=== PATIENT | female | born 1940 | race Caucasian/White ===

== ENCOUNTER 2020-03-27 13:23 | Inpatient (IN) | payer MEDICARE, OTHER ==
[2020-03-27 14:16] LABS: #Basophils 0.1 thou/uL (0.0-0.2); #Eosinphils 0.3 thou/uL (0.0-0.7); #Lymphocytes 1.3 thou/uL (1.20-3.40); #Monocytes 0.8 thou/uL (0.11-0.59); #Neutrophils 6.8 thou/uL (1.40-6.50); %Basophils 0.5 % (0.0-1.0); %Eosinophils 3.1 % (0.0-10.0); %Lymphocytes 14.2 % (21.0-51.0); %Monocytes 8.8 % (0.0-10.0); %Neutrophils 73.4 % (42.0-75.0); Hemoglobin 13.9 g/dL (12.0-16.0); Mean Corpuscular HGB CONC 32.7 g/dL (32.0-36.0); Mean Corpuscular Hemoglobin 28.3 pg (27.0-31.0); Mean Corpuscular Volume 86.5 fL (78.0-98.0); Mean Platelet Volume 9.8 fL (7.4-10.4); Platelet Count 224 thou/uL (130-400); RBC Distribution Width 13.7 % (11.5-14.5); Red Blood Cell (RBC) Count 4.91 mill/uL (4.20-5.40); White Blood Cell (WBC) Count 9.3 thou/uL (4.8-10.8)
--- NOTE | 2020-03-27 14:38 | RAD ---
Exam: Single view of the pelvis HISTORY: Pelvic and hip pain after fall COMPARISON: None FINDINGS: A single view the pelvis shows no evidence of acute fracture or dislocation. No degenerativ e changes seen in either hip. IMPRESSION: No evidence of acute osseous abnormality.
--- NOTE | 2020-03-27 14:43 | CT ---
Exam: CT cervical spine without contrast HISTORY: Generalized weakness, dizziness and intermittent nystagmus. Fall. Pain. COMPARISON: None FINDINGS: No craniocervical dissociation. Appropriate alignment of the lateral masses of C1 and C2. Intact odon toid process Appropriate alignment of the facets. Soft tissue neck structures: No mass, lymphadenopathy or hematoma. No prevertebral soft tissue swelli ng. Upper mediastinum and lung apices: Emphysematous change in the visualized lung apices. Central spinal canal: There are varying degrees of significant central canal stenosis and significant neural foraminal narrowing due to degenerative change. There is also multilevel ligament flavum thickening. There is at least moderate central canal stenosis at C3-C4, C4-C5, C5-C6. Vertebral bodies: Cervical spine vertebral body height is maintained. No fracture. Incidentals: There is a nondisplaced left first rib fracture. IMPRESSION: 1. Multilevel degenerative changes of cervical spine 2. No evidence of a cervical spine fracture 3. Nondisplaced left first rib fracture.
[2020-03-27 14:50] LABS: ALT (SGPT) 14 U/L (8-55); AST (SGOT) 25 U/L (5-34); Albumin 4.1 g/dL (3.4-4.8); Alkaline Phosphatase 122 U/L (40-110); Anion Gap 17 mmol/L (10-20); BUN (Urea Nitrogen) 18 mg/dL (9.8-20.1); Bilirubin, Total 0.3 mg/dL (0.2-1.2); Calc. Creatinine Clearance 0 mL/min (70-130); Calcium 6.9 mg/dL (7.8-10.44); Carbon Dioxide 28 mmol/L (23-31); Chloride 100 mmol/L (98-107); Estimated GFR-MDRD 65; Globulin 2.4 g/dL (2.4-3.5); Glucose 81 mg/dL (83-110); Potassium 4.8 mmol/L (3.5-5.1); Protein, Total 6.5 g/dL (6.0-8.3); Sodium 140 mmol/L (136-145)
--- NOTE | 2020-03-27 14:51 | CT ---
CT HEAD WITHOUT CONTRAST: 03/27/20 INDICATIONS: Dizziness. No comparison. FINDINGS: There is mild cortical volume loss. There is evidence of old cortical infarct in the right frontal lo be with encephalomalacia. Chronic ischemic changes in the right basal ganglia consistent with old lac unar infarct. Mild periventricular chronic ischemic changes. Ventricles are mildly prominent. No hemorrhage, mass, or evidence of acute cortical infarct. The paranasal sinuses and mastoids are cl ear. IMPRESSION: 1. Chronic ischemic changes. Evidence of old right frontal lobe infarct and right basal ganglia infarct with chronic ischemic changes in the periventricular white matter. 2. Borderline ventriculomegaly. POS: [facility]
[2020-03-27 15:45] LABS: Bilirubin Negative (Negative); Blood, Urine Negative (Negative); Clarity Clear (Clear); Glucose, Urine (Dipstick) Normal (Negative); Ketone, Urine Negative (Negative); Leukocyte Negative Leu/uL (Negative); Nitrite Negative (Negative); Protein, Urine (Dipstick) Negative (Neg-Trace); Specific Gravity, Urine 1.006 (1.002-1.036); Urobilinogen Normal mg/dL (Less than 2)
--- NOTE | 2020-03-27 15:49 | RAD ---
CHEST 1 VIEW PORTABLE: Date: 03/27/2020 HISTORY: Shortness of breath. Injury from a fall at [employer] yesterday. Weakness. FINDINGS: Bilateral shoulder replacement changes. Left ICD. Borderline cardiomegaly. Evidence for valvular repl acement. IMPRESSION: 1. Minimal cardiomegaly with evidence for valvular replacement. 2. Left ICD. 3. Bilateral shoulder replacement. 4. No confluent pneumonia, overt edema, pleural effusion, or other acute process. POS: [facility]
[2020-03-27] MEDS ORDERED: Acetaminophen 500 MG TAB ONE (15:51)
[2020-03-27 18:01] LABS: Troponin I Less than 0.010 ng/mL (< 0.028)
[2020-03-27 18:15] VITALS: BMI 25.0
[2020-03-27] MEDS ORDERED: Acetaminophen 325 MG TAB PO PRN (18:30)
[2020-03-27] MEDS ORDERED: Ondansetron ODT 4 MG TAB SL PRN (18:30)
[2020-03-27] MEDS ORDERED: Ondansetron PF 4 MG/2 ML Vial IVP PRN (18:30)
[2020-03-27] MEDS ORDERED: Aspirin 81 mg Enteric Coated Tablet PO SCH (19:30)
--- NOTE | 2020-03-27 19:34 | PDOC.HHP ---
Hospitalist HPI - History of Present Illness Dizziness History of Present Illness: PCP: Dr. Gao The patient is a 80-year-old female with a past medical history significant for CVA (), CHF, atrial fibrillation (on Xarelto), HTN and hypothyroidism that presents to the emergency department for the above complaint. The patient reports feeling generally weak and having dizzy spells over the past couple of days. She reports that she fell the day prior to admission to the hospital at the local [facility]. She reports that she became dizzy, losing her balance and fell to the ground. She denies LOC or hitting her head. She reports that she can feel these episodes coming on. Her neurologist, Dr. 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 She denies any changes in speech or focal weakness to her extremities the fall was witnessed by her friend. She denies any recent fever or illness. She has had no recent procedures. She denies any recent changes to her medications. She has no psychiatric history. She reports associated bilateral hip pain. She denies any chest pain, heart palpitations or swelling to her lower extremities. She denies any shortness of breath, cough or wheezing. No history of DVT/PE. She denies any abdominal pain, nausea, vomiting, diarrhea or hematochezia/melena. She denies any dysuria or hematuria. She has no other complaints at this time. ED Course: Presented T 98.1, BP 126/71, HR 66, RR 18, 96 RA Medication ministration: 1 g Tylenol Hospitalist ROS - Review of Systems All other systems reviewed; all pertinent +/- noted in HPI/Subj - Medication Medications: 1. Amlodipine 5 mg p.o. daily 2. Levothyroxine 150 mcg p.o. daily 3. Xarelto 20 mg p.o. nightly Allergies: Chantix Hospitalist History - Past Medical History Source: patient, RN notes reviewed Cardiac: reports: AFIB (Permanent, on Xarelto), CHF, HTN [employer]: reports: CVA (2014) Endocrine: reports: Hypothyroidism - Past Surgical History Past Surgical History: reports: Other (MVR, AICD, shoulder surgery) - Family History Family History: reports: cardiac disorder (Mother). denies: cerebrovascular accident - Social History Smoking Status: Current every day smoker Tobacco Type: cigarettes (Half pack per day) Alcohol: reports: None Drugs: reports: none Living Situation: Friends Occupation: Tired Activity level: uses cane/walker (Does not like to use her roller walker) - Exam General Appearance: NAD, awake alert. negative: ill appearing Eye: PERRL, anicteric sclera ENT: normocephalic atraumatic, dry oral mucosa Neck: supple, symmetric Heart: RRR, no murmur, no gallops, no rubs, normal peripheral pulses Respiratory: CTAB, no wheezes, no rales, no ronchi, normal chest expansion Gastrointestinal: soft, non-tender, non-distended, normal bowel sounds, no bruit , no guarding, no rigidity Extremities: no cyanosis, no edema Skin: no rashes Neurological: cranial nerve grossly intact, no weakness, no focal deficits. negative: speech deficit Neurological - other findings: Modified hints unremarkable, NIH 0 Musculoskeletal: normal tone, normal strength Psychiatric: normal affect, A&O x 3 Hospitalist Results - Labs Result Diagrams: 03/27/20 14:00 03/27/20 14:00 Lab results: WBC 9.3 thou/uL (4.8-10.8) 03/27/20 14:00 Hgb 13.9 g/dL (12.0-16.0) 03/27/20 14:00 Hct 42.5 % (36.0-47.0) 03/27/20 14:00 MCV 86.5 fL (78.0-98.0) 03/27/20 14:00 Plt Count 224 thou/uL (130-400) 03/27/20 14:00 Neutrophils % 73.4 % (42.0-75.0) 03/27/20 14:00 Sodium 140 mmol/L (136-145) 03/27/20 14:00 Potassium 4.8 mmol/L (3.5-5.1) 03/27/20 14:00 Chloride 100 mmol/L (98-107) 03/27/20 14:00 Carbon Dioxide 28 mmol/L (23-31) 03/27/20 14:00 BUN 18 mg/dL (9.8-20.1) 03/27/20 14:00 Creatinine 0.85 mg/dL (0.6-1.1) 03/27/20 14:00 Glucose 81 mg/dL (83-110) L 03/27/20 14:00 Calcium 6.9 mg/dL (7.8-10.44) L 03/27/20 14:00 Total Bilirubin 0.3 mg/dL (0.2-1.2) 03/27/20 14:00 AST 25 U/L (5-34) 03/27/20 14:00 ALT 14 U/L (8-55) 03/27/20 14:00 Alkaline Phosphatase 122 U/L (40-110) H 03/27/20 14:00 Troponin I Less than 0.010 ng/mL (< 0.028) 03/27/20 17:09 B-Natriuretic Peptide 163.6 pg/mL (0-100) H 03/27/20 14:00 Serum Total Protein 6.5 g/dL (6.0-8.3) 03/27/20 14:00 Albumin 4.1 g/dL (3.4-4.8) 03/27/20 14:00 Urine Ketones Negative mg/dL (Negative) 03/27/20 15:10 Urine Blood Negative (Negative) 03/27/20 15:10 Urine Nitrite Negative (Negative) 03/27/20 15:10 Ur Leukocyte Esterase Negative Lawrence/uL (Negative) 03/27/20 15:10 - EKG Interpretation EKG: Paced rhythm, no ST elevations - Radiology Interpretation Chest x-ray Status: report reviewed by me Additional Comment: Cardiomegaly, AICD in place, valve replacement, no acute cardiopulmonary process Other Status: report reviewed by me Additional Comment: X-ray pelvis: No acute fracture CT scan - head Status: report reviewed by me Additional Comment: Impression: 1. Chronic ischemic changes. Evidence of old right frontal lobe infarct and right basal ganglia infarct with chronic ischemic changes in the periventricular white matter. 2. Borderline ventriculomegaly. Hospitalist H&P A/P - Problem (1) Dizziness Code(s): R42 - DIZZINESS AND GIDDINESS Status: Acute (2) Hypocalcemia Code(s): E83.51 - HYPOCALCEMIA Status: Acute (3) Closed traumatic nondisplaced fracture of one rib of left side Code(s): S22.32XA - FRACTURE OF ONE RIB, LEFT SIDE, INIT FOR CLOS FX Status: Acute (4) Atrial fibrillation Code(s): I48.91 - UNSPECIFIED ATRIAL FIBRILLATION Status: Chronic (5) CVA (cerebral vascular accident) Code(s): I63.9 - CEREBRAL INFARCTION, UNSPECIFIED Status: Chronic (6) Hypothyroidism Code(s): E03.9 - HYPOTHYROIDISM, UNSPECIFIED Status: Chronic (7) CHF (congestive heart failure) Code(s): I50.9 - HEART FAILURE, UNSPECIFIED Status: Chronic - Plan Plan: 80/F with PMH CVA, A. fib, CHF presents for dizziness. Admit to stroke unit, observation status. Expected length of stay less than 2 midnights. Presented stable vital signs. EKG paced rhythm CT brain 1.chronic ischemic changes 2. Old right frontal lobe infarct and right basal ganglia infarct. 3. Borderline ventriculomegaly. CXR cardiomegaly, no acute process XR pelvis negative for fracture Troponins negative, BNP 163 Calcium 6.9 UA negative #Dizziness Rule out posterior CVA. AICD noncompatible for MRI. Order CD US, echocardiogram. Consult neurology and stroke team. Give aspirin and statin. Check TSH, FLP, mag folate/B12 and trend troponins Check orthostatic vital signs #Hypocalcemia EKG paced rhythm Presented Ca 6.9, albumin WNL Check mag, Phos, vitamin D, PTH Start calcium and D supplementation. #Closed traumatic nondisplaced fracture of 1 rib on left side Asymptomatic. Denies S OB or pain. Status post fall. #Atrial fibrillation Rate controlled, paced rhythm. Continue home dose Xarelto. 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 Followed by Daniel Fajardo [facility] #Hypothyroidism Check TSH Restart home dose of levothyroxine. #CHF Chronic, stable No signs of fluid volume overload. Order echocardiogram Reports taking Lasix as needed, not on home medication list. SCDs for DVT prophylaxis. Pepcid for GI prophylaxis. Full code. Discussed the case with Dr. Milian.
[2020-03-27] MEDS ORDERED: Rivaroxaban 10 MG TAB PO SCH (19:45)
[2020-03-27 20:26] LABS: Phosphorus 4.7 mg/dL (2.3-4.7)
[2020-03-27 20:31] LABS: Troponin I Less than 0.010 ng/mL (< 0.028)
--- NOTE | 2020-03-27 21:50 | ULT ---
ULTRASOUND DOPPLER DUPLEX CAROTID: DATE: 03/27/2020 HISTORY: Dizziness and vision changes in 80-year-old female TECHNIQUE: Grayscale, color-flow, and spectral analysis, of major arteries of neck. FINDINGS: RIGHT: Atherosclerotic plaque:Mild Peak systolic and end diastolic velocities: CCA:65 cm/s, 15 cm/s ICA:50 cm/s, 15 cm/s ICA/CCA ratio:0.8 Vertebral artery flow:Antegrade LEFT: Atherosclerotic plaque:Mild Peak systolic and end diastolic velocities: CCA:75 cm/s, 15 cm/s ICA:80 cm/s, 15 cm/s ICA/CCA ratio:1.0 Vertebral artery flow:Antegrade IMPRESSION: 1) mild atherosclerosis at origins of bilateral internal carotid arteries. 2) no evidence of hemodynamically significant stenosis.
[2020-03-27] MEDS: Atorvastatin Calcium 40 MG TAB PO SCH (22:02)
[2020-03-27] MEDS: Famotidine 20 MG TAB PO SCH (22:02)
[2020-03-27] MEDS: Calcium Citrate 950 MG TAB PO SCH (22:02)
[2020-03-27] MEDS: Nicotine 14 MG PATCH TD SCH (22:03)
[2020-03-27 22:46] LABS: Vitamin D, 25 Hydroxy 44.3 ng/ml (> 30.0)
[2020-03-28] MEDS ORDERED: Albuterol 200 PUFF (6.7GM INHALER) INH PRN (00:13)
[2020-03-28 04:28] LABS: SARS-CoV-2 MS2 Positive; SARS-CoV-2 N Gene Negative; SARS-CoV-2 S Gene Negative; SARS-CoV-2 by NAA Not Detected (NotDetected); SARS-CoV-2 orf1ab Negative
[2020-03-28 05:34] LABS: #Eosinphils 0.3 thou/uL (0.0-0.7); #Lymphocytes 1.4 thou/uL (1.20-3.40); #Monocytes 0.8 thou/uL (0.11-0.59); #Neutrophils 4.7 thou/uL (1.40-6.50); %Basophils 0.2 % (0.0-1.0); %Eosinophils 4.2 % (0.0-10.0); %Lymphocytes 18.9 % (21.0-51.0); %Monocytes 11.4 % (0.0-10.0); %Neutrophils 65.3 % (42.0-75.0); Hemoglobin 13.2 g/dL (12.0-16.0); Mean Corpuscular HGB CONC 32.4 g/dL (32.0-36.0); Mean Corpuscular Hemoglobin 28.2 pg (27.0-31.0); Mean Corpuscular Volume 87.1 fL (78.0-98.0); Mean Platelet Volume 9.9 fL (7.4-10.4); Platelet Count 206 thou/uL (130-400); RBC Distribution Width 13.7 % (11.5-14.5); Red Blood Cell (RBC) Count 4.68 mill/uL (4.20-5.40); White Blood Cell (WBC) Count 7.1 thou/uL (4.8-10.8)
[2020-03-28 05:57] LABS: Anion Gap 14 mmol/L (10-20); BUN (Urea Nitrogen) 16 mg/dL (9.8-20.1); Calc. Creatinine Clearance 57 mL/min (70-130); Calcium 7.1 mg/dL (7.8-10.44); Carbon Dioxide 31 mmol/L (23-31); Cardiac Risk 3.1 (Less than 4.5); Chloride 101 mmol/L (98-107); Cholesterol 154 mg/dl (< 200 Desired); Estimated GFR-MDRD 57; Glucose 89 mg/dL (83-110); HDL Cholesterol 50 mg/dL (>60 Neg Risk); LDL Cholesterol, Calculated 87 mg/dL; Potassium 4.4 mmol/L (3.5-5.1); Sodium 142 mmol/L (136-145); Triglycerides 85 mg/dL (Less than 150)
[2020-03-28] MEDS: Levothyroxine 150 MCG TAB PO SCH (06:39)
[2020-03-28] MEDS: Famotidine 20 MG TAB PO SCH ×2 (09:10→20:13)
[2020-03-28] MEDS: Calcium Citrate 950 MG TAB PO SCH ×2 (09:10→20:13)
[2020-03-28] MEDS: Amlodipine 5 MG TAB PO SCH (09:11)
[2020-03-28] MEDS: Calcitriol 0.25 MCG CAP PO SCH (09:11)
--- NOTE | 2020-03-28 12:14 | CON ---
NEUROLOGY CONSULTATION DATE OF CONSULTATION: 03/28/2020 REASON FOR CONSULTATION: Dizziness, rule out posterior circulation CVA. HISTORY OF PRESENT ILLNESS: Ms. Mata is a 80-year-old female with medical history significant for CVA in 2014 and then in 2019, congestive heart failure; atrial fibrillation, on Xarelto; hypertension; hypothyroidism, presented to the emergency room with complaint of persistent dizziness and generalized weakness for the last few days. Per the patient, she has a strange feeling before these spells occur about losing balance and usually she falls to the ground. She has double vision. She has tunnel vision and had generalized weakness before the spells of dizziness. The patient denies focal numbness, focal paresthesias, nausea, vomiting, headache, chest pain, abdominal pain, palpitations, swelling, diarrhea, recent illness, or recent exposure to COVID. The patient's neurologist is Dr. Daniel Tavarez from [facility], who told her that she has nystagmus and double vision from a brainstem stroke in June 2019. In the emergency room, vitals were checked and she was admitted for further evaluation to rule out posterior circulation stroke. REVIEW OF SYSTEMS: All systems reviewed and were negative except the pertinent positives and negatives mentioned in the HPI. MEDICATIONS: 1. Amlodipine 5 mg p.o. daily. 2. Levothyroxine 150 mcg p.o. daily. 3. Xarelto 20 mg p.o. nightly. ALLERGIES: CHANTIX. PAST MEDICAL HISTORY: Significant for atrial fibrillation, on Xarelto; congestive heart failure; hypertension; CVA in 2014 and 2019; hypothyroidism. PAST SURGICAL HISTORY: MVR, AICD, shoulder surgery. FAMILY HISTORY: Significant for coronary artery disease. SOCIAL HISTORY: The patient uses cane and walker. She lives with her friends. Denies smoking. She does smoke half a pack per day. Denies alcohol or illegal drug use. PHYSICAL EXAMINATION: VITAL SIGNS: Blood pressure 126/71, heart rate 66, and temperature 98.1. General Appearance: NAD, awake alert. negative: ill appearing Eye: PERRL, anicteric sclera ENT: normocephalic atraumatic, dry oral mucosa Neck: supple, symmetric Heart: RRR, no murmur, no gallops, no rubs, normal peripheral pulses Respiratory: CTAB, no wheezes, no rales, no ronchi, normal chest expansion Gastrointestinal: soft, non-tender, non-distended, normal bowel sounds, no bruit, no guarding, no rigidity Extremities: no cyanosis, no edema Skin: no rashes Neurological: Mental status, the patient is alert and oriented to person, place, and time. Speech is clear. Cranial nerves 2 through 12 intact. Motor, muscle tone and bulk are normal. Strength 5/5 bilaterally. Sensory intact. Cerebellar, finger-nose testing intact. Gait deferred due to the patient's safety reason. DATA REVIEWED: I reviewed the labs, which were essentially unremarkable except for hypoglycemia 81. matter. WBC 9.3 thou/uL (4.8-10.8) 03/27/20 14:00 Hgb 13.9 g/dL (12.0-16.0) 03/27/20 14:00 Hct 42.5 % (36.0-47.0) 03/27/20 14:00 MCV 86.5 fL (78.0-98.0) 03/27/20 14:00 Plt Count 224 thou/uL (130-400) 03/27/20 14:00 Neutrophils % 73.4 % (42.0-75.0) 03/27/20 14:00 Sodium 140 mmol/L (136-145) 03/27/20 14:00 Potassium 4.8 mmol/L (3.5-5.1) 03/27/20 14:00 Chloride 100 mmol/L (98-107) 03/27/20 14:00 Carbon Dioxide 28 mmol/L (23-31) 03/27/20 14:00 BUN 18 mg/dL (9.8-20.1) 03/27/20 14:00 Creatinine 0.85 mg/dL (0.6-1.1) 03/27/20 14:00 Glucose 81 mg/dL (83-110) L 03/27/20 14:00 Calcium 6.9 mg/dL (7.8-10.44) L 03/27/20 14:00 Total Bilirubin 0.3 mg/dL (0.2-1.2) 03/27/20 14:00 AST 25 U/L (5-34) 03/27/20 14:00 ALT 14 U/L (8-55) 03/27/20 14:00 Alkaline Phosphatase 122 U/L (40-110) H 03/27/20 14:00 Troponin I Less than 0.010 ng/mL (< 0.028) 03/27/20 17:09 B-Natriuretic Peptide 163.6 pg/mL (0-100) H 03/27/20 14:00 Serum Total Protein 6.5 g/dL (6.0-8.3) 03/27/20 14:00 Albumin 4.1 g/dL (3.4-4.8) 03/27/20 14:00 Urine Ketones Negative mg/dL (Negative) 03/27/20 15:10 Urine Blood Negative (Negative) 03/27/20 15:10 Urine Nitrite Negative (Negative) 03/27/20 15:10 Ur Leukocyte Esterase Negative Lawrence/uL (Negative) 03/27/20 15:10 - EKG Interpretation EKG: Paced rhythm, no ST elevations - Radiology Interpretation Chest x-ray Status: report reviewed by me Additional Comment: Cardiomegaly, AICD in place, valve replacement, no acute cardiopulmonary process Other Status: report reviewed by me Additional Comment: X-ray pelvis: No acute fracture CT scan - head Status: report reviewed by me Additional Comment: Impression: 1. Chronic ischemic changes. Evidence of old right frontal lobe infarct and right basal ganglia infarct with chronic ischemic changes in the periventricular white matter. 2. Borderline ventriculomegaly. ASSESSMENT AND PLAN: (1) Dizziness Code(s): R42 - DIZZINESS AND GIDDINESS Status: Acute (2) Hypocalcemia Code(s): E83.51 - HYPOCALCEMIA Status: Acute (3) Closed traumatic nondisplaced fracture of one rib of left side Code(s): S22.32XA - FRACTURE OF ONE RIB, LEFT SIDE, INIT FOR CLOS FX Status: Acute (4) Atrial fibrillation Code(s): I48.91 - UNSPECIFIED ATRIAL FIBRILLATION Status: Chronic (5) CVA (cerebral vascular accident) Code(s): I63.9 - CEREBRAL INFARCTION, UNSPECIFIED Status: Chronic (6) Hypothyroidism Code(s): E03.9 - HYPOTHYROIDISM, UNSPECIFIED Status: Chronic (7) CHF (congestive heart failure) Code(s): I50.9 - HEART FAILURE, UNSPECIFIED Status: Chronic Ms. Christen Mata is a 80-year-old female who was consulted for persistent dizziness to rule out posterior circulation stroke. MRI of the brain is not possible due to automatic implantable cardioverter-defibrillator not compatible with MRI. Consider further stroke workup including carotid Dopplers to rule out hemodynamically significant stenosis and echocardiogram to evaluate for left ventricular ejection fraction. Continue telemetry. The patient has atrial fibrillation and is on Xarelto for atrial fibrillation. Continue aspirin and high-intensity statin for secondary stroke prevention. Check TSH, fasting lipid panel, and hemoglobin A1c. Check orthostatic vital signs. Continue home medications. Continue PT/OT/Speech. Continue medical management per primary team. EEG to evaluate the spells to rule out cortical irritability in the posterior temporal lobe. Neuro checks every 4 hours. Deep venous thrombosis prophylaxis and gastrointestinal prophylaxis. We will continue to follow. Thank you for the consult. Job ID: [id number] [email or web address]
--- NOTE | 2020-03-28 14:25 | PDOC.HOSPP ---
- Subjective Encounter Date: 03/28/20 Encounter Time: 14:05 Subjective: f/u for dizziness/fall with negative work up to date. Initial CT brain unremarkable for acute process. Awaiting Echo/repeat CT brain. - Objective Vital Signs & Weight: Vital Signs (12 hours) Temp Pulse Pulse Pulse Resp BP BP 03/28/20 12:04 97.9 F 69 21 H 03/28/20 09:11 67 136/72 03/28/20 09:04 67 62 136/72 03/28/20 07:00 97.3 F L 67 18 03/28/20 06:56 71 16 03/28/20 04:00 97.5 F L 67 16 BP BP BP Pulse Ox 03/28/20 12:04 177/86 H 96 03/28/20 09:11 03/28/20 09:04 139/63 03/28/20 07:00 134/61 96 03/28/20 06:56 97 03/28/20 04:00 140/78 94 L Weight Weight 164 lb 5 oz Result Diagrams: 03/28/20 05:00 03/28/20 05:00 Additional Labs: Laboratory Tests 03/27/20 03/27/20 03/27/20 14:00 17:48 19:55 Phosphorus 4.7 Magnesium 2.0 B-Natriuretic Peptide 163.6 H Triglycerides Cholesterol LDL Cholesterol, Calc HDL Cholesterol Vitamin B12 25-OH Vitamin D Total Folate TSH 3rd Generation PTH Intact SARS-CoV-2 (PCR) Not Detected 03/27/20 03/27/20 03/27/20 19:55 19:55 19:55 Phosphorus Magnesium B-Natriuretic Peptide Triglycerides Cholesterol LDL Cholesterol, Calc HDL Cholesterol Vitamin B12 25-OH Vitamin D Total 44.3 Folate 15.60 TSH 3rd Generation 1.0169 PTH Intact 17.9 L SARS-CoV-2 (PCR) 03/27/20 03/28/20 19:55 05:00 Phosphorus Magnesium B-Natriuretic Peptide Triglycerides 85 Cholesterol 154 LDL Cholesterol, Calc 87 HDL Cholesterol 50 Vitamin B12 616 25-OH Vitamin D Total Folate TSH 3rd Generation PTH Intact SARS-CoV-2 (PCR) Radiology Reviewed by me: Yes (Carotid sono - no significant stenosis; CT brain - no acute process) EKG Reviewed by me: Yes (Tele - AV paced) Hospitalist ROS - Medication Medications: Active Medications Generic Name Dose Route Start Last Admin Trade Name Freq PRN Reason Stop Dose Admin Albuterol/Ipratropium 3 ml 03/28/20 01:00 03/28/20 13:29 Ipratropium/Albuterol Sulfate 3 Ml Neb NEB 3 ml [id number] CHOLÉ Administration Amlodipine Besylate 5 mg 03/28/20 09:00 03/28/20 09:11 Amlodipine 5 Mg Tab PO 5 mg DAILY CHLOÉ Administration Atorvastatin Calcium 40 mg 03/27/20 21:00 03/27/20 22:02 Atorvastatin Calcium 40 Mg Tab PO 40 mg HS CHLOÉ Administration Calcitriol 0.25 mcg 03/28/20 09:00 03/28/20 09:11 Calcitriol 0.25 Mcg Cap PO 0.25 mcg DAILY CHLOÉ Administration Calcium Citrate 950 mg 03/27/20 21:00 03/28/20 09:10 Calcium Citrate 950 Mg Tab PO 950 mg BID CHLOÉ Administration Famotidine 20 mg 03/27/20 21:00 03/28/20 09:10 Famotidine 20 Mg Tab PO 20 mg BID CHLOÉ Administration Levothyroxine Sodium 150 mcg 03/28/20 06:00 03/28/20 06:39 Levothyroxine 150 Mcg Tab PO 150 mcg 0600 CHLOÉ Administration Nicotine 14 mg 03/27/20 21:00 03/27/20 22:03 Nicotine 14 Mg Patch TD 14 mg Q24HR CHLOÉ Administration Sodium Chloride 10 ml 03/27/20 19:25 03/28/20 09:12 Flush - Normal Saline 10 Ml Syringe IVF 10 ml PRN PRN Administration Saline Flush - Exam General Appearance: NAD, awake alert Eye: PERRL, anicteric sclera ENT: normocephalic atraumatic, no oropharyngeal lesions Neck: supple, symmetric, no JVD, no thyromegaly, no lymphadenopathy Heart: RRR, no gallops, no rubs, normal peripheral pulses Heart - other findings: S1, S2 Respiratory: CTAB, no wheezes, no rales, no ronchi, normal chest expansion, no tachypnea Gastrointestinal: soft, non-tender, non-distended, normal bowel sounds, no palpable masses Extremities: no cyanosis, no clubbing, no edema Skin: normal turgor, no lesions Neurological: cranial nerve grossly intact, no new deficit Neurological - other findings: + nystagmus bilat(chronic) Musculoskeletal: normal tone, normal strength Psychiatric: normal affect, A&O x 3 Hosp A/P (1) Dizziness Code(s): R42 - DIZZINESS AND GIDDINESS Status: Acute Plan: Likely due to nystagmus, supportive mgmt, PT for functional assessment (2) Hypocalcemia Code(s): E83.51 - HYPOCALCEMIA Status: Acute Plan: Mild, continue Ca++ supplementation (3) Closed traumatic nondisplaced fracture of one rib of left side Code(s): S22.32XA - FRACTURE OF ONE RIB, LEFT SIDE, INIT FOR CLOS FX Status: Chronic Plan: Observe (4) Atrial fibrillation Code(s): I48.91 - UNSPECIFIED ATRIAL FIBRILLATION Status: Chronic Plan: AV pacing, continue Xarelto (5) Hypothyroidism Code(s): E03.9 - HYPOTHYROIDISM, UNSPECIFIED Status: Chronic Plan: Resume home Levothyroxine 150mcg daily - Plan PT/OT, social service agency director, out of bed/ambulate, DVT proph w/SCDs Stable currently 2D echo pending EEG pending PT for functional assessment Repeat CT brain in am AM lab: BMP Likely home in 24h
--- NOTE | 2020-03-28 15:33 | PDOC.EEG ---
Neurology EEG Report - Report Report: This EEG was performed using 24 channel [employer] video digital EEG machine with 24 disc electrodes. This was an extended 2-hour 10 minutes of inpatient video EEG recording. Digital analysis of the EEG was done for Jose Antonio and seizure detection which revealed no abnormalities Background: The posterior background rhythm is 9-10 hz. Minimal reactivity seen with eye opening and closure. Hyperventilation: Not performed. Photic stimulation. Bioccipital symmetric response seen with photic stimulation. Sleep: Drowsiness is observed. EEG diagnosis: Normal awake and drowsy EEG.
[2020-03-28] MEDS ORDERED: Calcium Carbonate 600 MG + Vit D TAB PO SCH (17:00)
[2020-03-28] MEDS: Rivaroxaban 10 MG TAB PO SCH (17:12)
[2020-03-28] MEDS: Acetaminophen 325 MG TAB PO PRN (17:21)
[2020-03-28] MEDS: Nicotine 14 MG PATCH TD SCH (20:13)
[2020-03-28] MEDS: Atorvastatin Calcium 40 MG TAB PO SCH (20:13)
[2020-03-29] MEDS: Acetaminophen 325 MG TAB PO PRN ×2 (01:35→21:54)
[2020-03-29] MEDS: Levothyroxine 150 MCG TAB PO SCH (05:36)
[2020-03-29 06:15] LABS: Anion Gap 19 mmol/L (10-20); BUN (Urea Nitrogen) 17 mg/dL (9.8-20.1); Calc. Creatinine Clearance 55 mL/min (70-130); Calcium 7.6 mg/dL (7.8-10.44); Carbon Dioxide 28 mmol/L (23-31); Chloride 101 mmol/L (98-107); Estimated GFR-MDRD 55; Glucose 101 mg/dL (83-110); Potassium 4.7 mmol/L (3.5-5.1); Sodium 143 mmol/L (136-145)
--- NOTE | 2020-03-29 08:58 | CT ---
EXAM: Brain CTWithout contrast: HISTORY: Follow-up stroke COMPARISON: 03/27/2020 FINDINGS: Stable atrophy and chronic white matter ischemic changes, old right frontal encephalomalacic and righ t periventricular lacunar infarct changes. No focal mass or midline shift. No intra or extra-axial hemorrhage. Sinuses and mastoids are clear of acute process. IMPRESSION: No significant new process. No mass or bleed.
[2020-03-29] MEDS: Calcitriol 0.25 MCG CAP PO SCH (09:50)
[2020-03-29] MEDS: Amlodipine 5 MG TAB PO SCH (09:50)
[2020-03-29] MEDS: Calcium Citrate 950 MG TAB PO SCH ×2 (09:50→20:19)
[2020-03-29] MEDS: Famotidine 20 MG TAB PO SCH ×2 (09:50→20:19)
[2020-03-29] MEDS ORDERED: Albuterol Sulfate 2.5 mg/3 ml Neb NEB PRN (10:15)
[2020-03-29] MEDS ORDERED: Polyethylene Glycol 3350 17 GM Packet PO SCH (11:00)
[2020-03-29] MEDS ORDERED: Senokot S 8.6-50 MG TAB PO SCH (11:00)
--- NOTE | 2020-03-29 14:06 | PDOC.HOSPP ---
- Subjective Encounter Date: 03/29/20 Encounter Time: 09:30 Subjective: Patient seen and examined for acute CVA. Feels generally weak and fatigue. Had palpitations earlier today after breathing treatment. Telemetry monitoring showed short run of SVT. Denies any new focal deficit. No chest pain or syncope reported. - Objective Vital Signs & Weight: Vital Signs (12 hours) Temp Pulse Pulse Pulse Resp BP BP 03/29/20 11:58 96.4 F L 67 17 03/29/20 10:56 67 68 123/64 130/62 03/29/20 07:51 66 12 03/29/20 07:36 98 F 65 17 03/29/20 03:47 97.5 F L 65 16 BP Pulse Ox 03/29/20 11:58 132/64 96 03/29/20 10:56 03/29/20 07:51 03/29/20 07:36 158/70 H 96 03/29/20 03:47 140/71 95 Weight Weight 164 lb 5 oz I&O: 03/28/20 03/29/20 03/30/20 06:59 06:59 06:59 Intake Total 1850 Balance 1850 Result Diagrams: 03/28/20 05:00 03/29/20 05:46 Additional Labs: Radiology Reviewed by me: Yes (CT brainno new CVA) EKG Reviewed by me: Yes (Paced rhythm on telemetry) Hospitalist ROS - Review of Systems Cardiovascular: reports: palpitations. denies: chest pain, orthopnea, paroxysmal noc. dyspnea, edema, light headedness, other Gastrointestinal: reports: constipation. denies: nausea, vomiting, abdominal pain, diarrhea, melena, hematochezia, other - Medication Medications: Active Medications Generic Name Dose Route Start Last Admin Trade Name Freq PRN Reason Stop Dose Admin Acetaminophen 650 mg 03/28/20 15:47 03/29/20 01:35 Acetaminophen 325 Mg Tab PO 650 mg Q4H PRN Administration Headache/Fever or Pain Amlodipine Besylate 5 mg 03/28/20 09:00 03/29/20 09:50 Amlodipine 5 Mg Tab PO 5 mg DAILY CHLOÉ Administration Atorvastatin Calcium 40 mg 03/27/20 21:00 03/28/20 20:13 Atorvastatin Calcium 40 Mg Tab PO 40 mg HS CHLOÉ Administration Calcitriol 0.25 mcg 03/28/20 09:00 03/29/20 09:50 Calcitriol 0.25 Mcg Cap PO 0.25 mcg DAILY CHLOÉ Administration Calcium Citrate 950 mg 03/27/20 21:00 03/29/20 09:50 Calcium Citrate 950 Mg Tab PO 950 mg BID CHLOÉ Administration Famotidine 20 mg 03/27/20 21:00 03/29/20 09:50 Famotidine 20 Mg Tab PO 20 mg BID CHLOÉ Administration Levothyroxine Sodium 150 mcg 03/28/20 06:00 03/29/20 05:36 Levothyroxine 150 Mcg Tab PO 150 mcg 0600 CHLOÉ Administration Nicotine 14 mg 03/27/20 21:00 03/28/20 20:13 Nicotine 14 Mg Patch TD 14 mg Q24HR CHLOÉ Administration Rivaroxaban 20 mg 03/28/20 17:00 03/28/20 17:12 Rivaroxaban 10 Mg Tab PO 20 mg 1700 CHLOÉ Administration Sodium Chloride 10 ml 03/27/20 19:25 03/28/20 09:12 Flush - Normal Saline 10 Ml Syringe IVF 10 ml PRN PRN Administration Saline Flush - Exam General Appearance: NAD Neck: supple, no JVD Heart: RRR, no gallops Respiratory: no wheezes, no rales Gastrointestinal: soft, non-distended, no guarding, no rigidity Neurological: no new deficit Musculoskeletal: generalized weakness Psychiatric: normal affect, A&O x 3 Hosp A/P - Plan DVT proph w/lovenox Generalized weakness/dizziness suspected due to acute CVA No MRI due to AICD Echocardiogram showed ejection fraction 55 to 60% with left atrial dilatation, mild to moderate mitral regurgitation, mild mitral stenosis Mild bilateral ICA atherosclerosis History of bioprosthetic mitral valve replacement s/p AICD Paroxysmal atrial fibrillation on anticoagulation Hypothyroidism SVT on 03/29 due to nebulizer treatments Hypertension Hypocalcemia Tobacco dependence CKD stage III Plan: Add low-dose aspirin per neurology. Discontinue nebulizer treatments. SVT probably due to nebulizer treatment. Add albuterol as needed. Continue Xarelto. Change nicotine patch to as needed. Counseled on tobacco cessation. Continue statins. Consult vocational case manager for home health care. Patient is also requesting assisted living facility. Repeat CT brain this morning was negative for acute findings. EEG was negative. Discharge in 24 hours if stable. Treat constipation.
[2020-03-29] MEDS ORDERED: Nicotine 14 MG PATCH TD PRN (15:00)
[2020-03-29] MEDS: Albuterol 200 PUFF (6.7GM INHALER) INH PRN (16:12)
[2020-03-29] MEDS: Rivaroxaban 10 MG TAB PO SCH (16:13)
[2020-03-29] MEDS: Atorvastatin Calcium 40 MG TAB PO SCH (20:19)
[2020-03-29] MEDS: Senokot S 8.6-50 MG TAB PO SCH (20:21)
[2020-03-30 00:23] LABS: #Eosinphils 0.3 thou/uL (0.0-0.7); #Lymphocytes 1.7 thou/uL (1.20-3.40); #Neutrophils 6.8 thou/uL (1.40-6.50); %Basophils 0.4 % (0.0-1.0); %Eosinophils 3.3 % (0.0-10.0); %Lymphocytes 17.5 % (21.0-51.0); %Neutrophils 68.9 % (42.0-75.0); Hemoglobin 13.1 g/dL (12.0-16.0); Mean Corpuscular HGB CONC 32.7 g/dL (32.0-36.0); Mean Corpuscular Hemoglobin 28.3 pg (27.0-31.0); Mean Corpuscular Volume 86.6 fL (78.0-98.0); Mean Platelet Volume 9.8 fL (7.4-10.4); Platelet Count 246 thou/uL (130-400); RBC Distribution Width 13.5 % (11.5-14.5); Red Blood Cell (RBC) Count 4.62 mill/uL (4.20-5.40); White Blood Cell (WBC) Count 9.8 thou/uL (4.8-10.8)
[2020-03-30 00:42] LABS: Anion Gap 17 mmol/L (10-20); BUN (Urea Nitrogen) 21 mg/dL (9.8-20.1); Calc. Creatinine Clearance 56 mL/min (70-130); Calcium 7.5 mg/dL (7.8-10.44); Carbon Dioxide 25 mmol/L (23-31); Chloride 102 mmol/L (98-107); Estimated GFR-MDRD 57; Glucose 104 mg/dL (83-110); Magnesium 2.2 mg/dL (1.6-2.6); Potassium 4.2 mmol/L (3.5-5.1); Sodium 140 mmol/L (136-145)
[2020-03-30] MEDS: Acetaminophen 325 MG TAB PO PRN (03:09)
[2020-03-30] MEDS: Levothyroxine 150 MCG TAB PO SCH (07:29)
[2020-03-30] MEDS: Albuterol 200 PUFF (6.7GM INHALER) INH PRN (07:29)
[2020-03-30 07:42] VITALS: BP 146/69
[2020-03-30] MEDS: Famotidine 20 MG TAB PO SCH (08:19)
[2020-03-30] MEDS: Calcium Citrate 950 MG TAB PO SCH (08:19)
[2020-03-30] MEDS: Amlodipine 5 MG TAB PO SCH (08:19)
[2020-03-30] MEDS: Senokot S 8.6-50 MG TAB PO SCH (08:19)
[2020-03-30] MEDS: Calcitriol 0.25 MCG CAP PO SCH (08:19)
[2020-03-30] MEDS ORDERED: Aspirin 81 mg Enteric Coated Tablet PO SCH (09:00)
[2020-03-30] MEDS ORDERED: Polyethylene Glycol 3350 17 GM Packet PO SCH (09:00)
[2020-03-30 12:40] VITALS: TEMP 97.3
--- NOTE | 2020-03-30 14:27 | PDOC.DS.DS ---
Provider - Provider Date of Admission: 03/27/20 16:36 Admitting Provider: Jarvis Milian MD Consultations: Cardiology, Neurology Primary Care Physician: Cory Gao MD Course - Hospital Course Hospital Course: This patient is a 80-year-old woman who was admitted to the hospital for strokelike symptoms. Reportedly she was out at a local [employer] with some friends when she suffered suddenly got dizzy and lightheaded and fell. She has had a previous stroke and apparently was told by a neurologist that she saw in [place] in the remote past that she has some vestibular symptoms as a result of the stroke. Work-up appeared to be negative with a CT of the head. CT angio of the head and neck showed moderate carotid stenosis on the left side. She was seen during this visit by neurology. Recommendation was to add aspirin to the patient's home medications. She was previously on Xarelto for heart issues. Initial plan was for patient to undergo an MRI to further diagnose her but she does have an AICD in place which is not MRI compatible. The patient has otherwise remained clinically stable. She was offered options of going to rehab versus home health and initially it appeared that she was open to home health but she declined later on. She does have some resources at home and she has good friends that help her out. She subsequently was discharged home today in a stable condition. Pertinent Studies: CTA of the head and neck that showed a left-sided moderate carotid stenosis. Resuscitation Status: 03/27/20 19:26 Resuscitation Status Routine Co-Sign Provider: Resuscitation Status: FULL: Full Resuscitation Discussed with: patient - Labs Lab Results: 03/30/20 00:01 03/30/20 00:01 Abnormal Lab Results - Last 48 hrs 03/29/20 05:46: Calcium 7.6 L 03/30/20 00:01: BUN 21 H, Calcium 7.5 L 03/30/20 00:01: Lymphocytes % 17.5 L, Neutrophils # 6.8 H, Monocytes # 1.0 H - Physical Exam Vitals: Vital Signs (12 hours) Temp Pulse Resp BP Pulse Ox 03/30/20 12:35 97.3 F L 45 L 146/69 H 97 03/30/20 08:00 91 L 03/30/20 07:34 97.6 F 69 20 146/69 H 91 L 11/22/20 03:37 97.3 F L 66 18 170/79 H 94 L Weight Weight 164 lb 5 oz Physical Exam: The patient was seen and examined on the day of discharge. Problem - Discharge Plan Assessment: Patient was seen and evaluated today at the bedside. She is awake and alert and has no focal deficits. Plan - Discharge Medications Home Medications: Medication Instructions Recorded Confirmed Type Levothyroxine Sodium [Unithroid] 150 mcg PO DAILY 03/27/20 03/27/20 History Amlodipine [Norvasc] 5 mg PO DAILY #30 03/30/20 03/27/20 Rx Aspirin [Ecotrin Low Strength] 81 mg PO DAILY tab 03/30/20 Rx Atorvastatin Calcium [Lipitor] 40 mg PO HS tab 03/30/20 Rx Calcitriol [Rocaltrol] 0.25 mcg PO DAILY cap 03/30/20 Rx Calcium Citrate [Calcitrate] 950 mg PO BID tab 03/30/20 Rx Rivaroxaban [Xarelto] 20 mg PO 1700 tab 03/30/20 Rx Allergies: varenicline [From Chantix] Allergy (Verified 03/27/20 22:10) - Discharge Instructions Activity:: Activity as Tolerated - Follow up Plan Referrals: Fabrizio Baires MD [Active] - Cory Gao MD [Primary Care Provider] - Disposition: HOME Quality - Care Measures CORE MEASURES:: Stroke/TIA - Stroke/TIA Did you prescribe antithrombotic therapy?: Yes Did you prescribe anticoagulant for A Fib/Flutter?: Yes Did you prescribe a statin medication?: Yes
--- NOTE | 2020-04-02 09:17 | EKG ---
Test Reason : STAT Blood Pressure : / mmHG Vent. Rate : 065 BPM Atrial Rate : 441 BPM P-R Int : 000 ms QRS Dur : 136 ms QT Int : 552 ms P-R-T Axes : 000 255 086 degrees QTc Int : 574 ms Suspect unspecified pacemaker failure Ventricular-paced rhythm Abnormal ECG When compared with ECG of 27-MAR-2020 13:53, (Unconfirmed) No significant change was found Confirmed by SMITH MCKAY MD ([id number]) on 04/02/2020 9:16:57 AM Referred By: LIZZIE Confirmed By:SMITH MCKAY MD
== END 2020-03-30 14:48 | disposition home or self-care (01) | DRG 65 ==
LOC: ERS 13:23 → OBSVTOIN 16:36 → 2SE 16:36
PROVIDERS: ADMIT Internal Medicine; ATTEND Hospitalist
DX: I63.9 Cerebral infarction, unspecified (principal); S22.32XA Fracture of one rib, left side, initial encounter for closed fracture; I48.21 Permanent atrial fibrillation; I47.1 Supraventricular tachycardia; I13.0 Hypertensive heart and chronic kidney disease with heart failure and stage 1 through stage 4 chronic kidney disease, or unspecified chronic kidney disease; Z20.828 Contact with and (suspected) exposure to other viral communicable diseases; F41.9 Anxiety disorder, unspecified; F17.210 Nicotine dependence, cigarettes, uncomplicated; E03.9 Hypothyroidism, unspecified; E83.51 Hypocalcemia; I50.9 Heart failure, unspecified; W19.XXXA Unspecified fall, initial encounter; H55.00 Unspecified nystagmus; I48.0 Paroxysmal atrial fibrillation; N18.30 Chronic kidney disease, stage 3 unspecified; I65.22 Occlusion and stenosis of left carotid artery; K59.00 Constipation, unspecified; R29.700 NIHSS score 0; Z79.01 Long term (current) use of anticoagulants; Z86.73 Personal history of transient ischemic attack (TIA), and cerebral infarction without residual deficits; Z88.5 Allergy status to narcotic agent; Z79.890 Hormone replacement therapy; Z79.82 Long term (current) use of aspirin; Z79.899 Other long term (current) drug therapy; Z95.810 Presence of automatic (implantable) cardiac defibrillator; Z95.2 Presence of prosthetic heart valve
CPT/HCPCS: 36415; 70450; 71045; 72125; 72170; 80048; 80053; 80061; 81003; 82306; 82607; 82746; 83735; 83880; 83970; 84100; 84443; 84484; 85025; 87635; 93005; 93010; 93306; 93880; 94640; 95712; 95819; 95957; G0378; J7620; U0003